=== PATIENT | female | born 1960 | race Caucasian/White ===

== ENCOUNTER → 2017-12-27 | Outpatient (CLI) | payer BC ==
[2017-12-27 12:37] LABS: INR 1.1 (<1.2); Partial Thromboplastin Time 23.7 sec (22.0-30.0); Prothrombin Time 10.6 sec (9.0-12.0)
[2017-12-27 12:43] LABS: HCT 41.9 % (34.0-46.0); HGB 13.8 gm/dL (11.4-16.0); MCH 31.4 pg (25.0-35.0); MCHC 32.9 g/dL (31.0-37.0); MCV 95.4 fL (80.0-100.0); Mean Platelet Volume 7.8; Platelet Count 358 k/uL (150-450); RDW 11.8 % (11.5-15.5); WBC 9.3 k/uL (3.8-10.6)
[2017-12-27 12:47] LABS: ALT 30 U/L (9-52); AST 31 U/L (14-36); Albumin 4.6 g/dL (3.5-5.0); Alkaline Phosphatase 84 U/L (38-126); Anion Gap 16 mmol/L; Blood Urea Nitrogen 14 mg/dL (7-17); Calcium 10.3 mg/dL (8.4-10.2); Carbon Dioxide 26 mmol/L (22-30); Chloride 102 mmol/L (98-107); Glucose 98 mg/dL (74-99); Potassium 4.5 mmol/L (3.5-5.1); Sodium 144 mmol/L (137-145); Total Bilirubin 0.7 mg/dL (0.2-1.3); Total Protein 8.2 g/dL (6.3-8.2)
[2017-12-27 14:28] LABS: Appearance,Urine Clear (Clear); Bilirubin,Urine Negative (Negative); Blood,Urine Negative (Negative); Color,Urine Light Yellow; Glucose,Urine (UA) Negative (Negative); Ketones,Urine Negative (Negative); Leukocyte Esterase,Urine Negative (Negative); Nitrite,Urine Negative (Negative); PH, Urine 6.5 (5.0-8.0); Protein,Urine Trace (Negative); Specific Gravity,Urine 1.004 (1.001-1.035); Urobilinogen,Urine <2.0 mg/dL (<2.0)
== END | disposition home or self-care (01) ==
LOC: LABPAT 11:28
PROVIDERS: ATTEND Orthopaedic Surgery
DX: Z01.812 Encounter for preprocedural laboratory examination (principal)
CPT/HCPCS: 36415; 80053; 81003; 85027; 85610; 85730; 87070

== ENCOUNTER 2018-01-01 09:27 | Inpatient (IN) | payer BC ==
[2017-12-20 10:43] VITALS: BMI 29.2
[~2018-01-01 09:27] MED LIST: ACETAMINOPHEN TAB 500 MG TAB PO ONE; DEXAMETHASONE SOD PHOSPHATE 10 MG/ML 1 ML VIAL IV ONE; MELOXICAM 7.5 MG TAB PO ONE; MIDAZOLAM 2 MG/2 ML VIAL IV PRN; MORPHINE SULFATE 4MG/4ML SYRG IV PRN; ONDANSETRON 4 MG/2 ML VIAL IVP ONE; TRANEXAMIC ACID 1,000 MG in SODIUM CHLORIDE 0.9% 50 ML IVPB ONE
[2018-01-01] MEDS ORDERED: LIDOCAINE 1% 20 ML VIAL (10MG/ML) FOR IV START INTRADERMA ONE (10:00)
[2018-01-01] MEDS: LACTATED RINGERS 1,000 ML IV SCH (10:27)
[2018-01-01] MEDS ORDERED: hydrOXYzine PAMOATE 25 MG CAP PO PRN (11:04)
[2018-01-01] MEDS ORDERED: NALOXONE 0.4 MG/ML 1 ML VIAL IV PRN (11:04)
[2018-01-01] MEDS ORDERED: DIAZEPAM 5 MG TAB PO PRN ×2 (11:04)
[2018-01-01] MEDS ORDERED: ONDANSETRON 4 MG/2 ML VIAL IVP PRN (11:04)
[2018-01-01] MEDS ORDERED: MAGNESIUM HYDROXIDE 2,400 MG/10 ML CUP PO PRN (11:04)
[2018-01-01] MEDS ORDERED: HYDROcodone/APAP 5-325MG 1 EACH TAB PO PRN (11:04)
[2018-01-01] MEDS ORDERED: MORPHINE SULFATE 4MG/4ML SYRG IVP PRN ×3 (11:04)
[2018-01-01] MEDS: ceFAZolin IN SWFI 2 GM/20 ML SYRINGE IVP ONE ×2 (11:41→12:05)
[2018-01-01] MEDS: ROPIVACAINE 246.25 MG, EPINEPHrine 0.5 MG, KETOROLAC 30 MG, cloNIDine HCL/PF 80 MCG, WA... MISCELLANE ONE ×10 (11:42→12:24)
[2018-01-01] MEDS ORDERED: MIDAZOLAM 2 MG/2 ML VIAL ONE (11:49)
[2018-01-01] MEDS ORDERED: PROPOFOL 10 MG/ML 20 ML VIAL IV ONE (11:49)
[2018-01-01] MEDS ORDERED: TRANEXAMIC ACID 1,000 MG/10 ML VIAL ONE (11:49)
[2018-01-01] MEDS ORDERED: LIDOCAINE 1% INJ 10MG/ML (20 ML MDV) ONE (11:49)
[2018-01-01] MEDS ORDERED: fentaNYL (PF) 50 MCG/ML 2 ML AMP ONE (11:49)
[2018-01-01] MEDS ORDERED: SODIUM CHLORIDE 0.9% 100 ML BAG ONE (11:49)
[2018-01-01] MEDS ORDERED: PHENYLEPHRINE-0.9% NACL SYG 1 MG/10 ML SYRINGE ONE (11:49)
[2018-01-01] MEDS ORDERED: CLINDAMYCIN 1,800 MG in SODIUM CHLORIDE 0.9% IRRIGATIO 3,000 ML IRRIGATION ONE (12:25)
[2018-01-01] MEDS ORDERED: LACTATED RINGERS 1,000 ML IV ONE (12:25)
--- NOTE | 2018-01-01 13:17 | P.OP ---
Date of Procedure: 01/01/18 Preoperative Diagnosis: Severe osteoarthritis right hip Postoperative Diagnosis: Severe osteoarthritis right hip Procedure(s) Performed: Right total hip arthroplasty with a direct anterior approach Implants: Paez and nephew Polarstem size 4 standard Paez & Nephew R3, 3 hole acetabular shell, 48 mm Paez & Nephew reflection 6.5 mm cancellus screw, 20 mm 2 Paez [employer] Nephew R3, XLPE 20 acetabular liner Paez & Nephew Oxinium femoral head 32 m, +0 All components were press-fit. The articulation is Oxinium on polyethylene. Anesthesia: spinal Surgeon: Valente Grande Help Desk Assistant #1: Delilah Cronin Estimated Blood Loss (ml): 100 Pathology: other (Femoral head) Condition: stable Disposition: PACU Indications for Procedure: After failure of conservative treatment we discussed the surgical and nonsurgical treatment options at length. Patient wishes to proceed with a total hip arthroplasty with a direct anterior approach. Complications specific to this procedure were discussed at length, including but not limited to infection, leg length discrepancy, dislocation, and nerve injury. Patient is aware of all these complications and informed consent was obtained Operative Findings: The operative findings are consistent with severe osteoarthritis of the right hip Description of Procedure: Patient was seen and evaluated in the preoperative area, consent was reviewed, and the surgical site was marked with a skin marker. Patient was then brought to the operating room and given prophylactic antibiotics intravenously. 1 g of Tranexamic acid was also given. A spinal anesthetic was administered by the anesthesia department. The patient was then placed on the Freeman table with the bony prominences well-padded. The hip area was then prepped and draped in usual sterile fashion. A universal timeout was then performed, which confirmed the patient's name, surgical site, ALLERGIES, and procedure being performed. Next the incision site was located at 1 cm distal and 1 cm lateral to the anterior superior iliac spine. The skin and subcutaneous tissues were sharply incised. Incision was carefully dissected down to the fascia overlying the tensor fascia satnam muscle. This fascia was then incised in line with the incision. Next, using blunt finger dissection, the tensor fascia satnam muscle was dissected off its investing fascia. The muscle was then carefully retracted laterally with a cobra retractor over the lateral neck of the femur. Next, the circumflex vessels were identified and cauterized using the AquaMantis device. The anterior hip capsule was then exposed. The capsule was then opened and an inverted T fashion. Cobra retractors were then placed intracapsularly. The proximal femur was then visualized. The femoral neck was then osteotomized appropriate level above the lesser trochanter. Small amount of traction was placed with the Freeman table. A small wedge of bone was then removed from the remaining femoral head. Next, using a corkscrew femoral head was easily removed from the acetabulum. On gross visual inspection, the femoral head had complete loss of articular cartilage in multiple periarticular osteophytes. Attention was then turned to the acetabulum. the acetabulum was exposed and any remaining labrum was excised. Sequential reaming of the acetabulum was performed using fluoroscopic guidance. When the appropriate size was reached, a trial was then placed. The position and fit of the trial was checked with fluoroscopy. The trial was then removed. Then, using fluoroscopic guidance, the final implant was impacted at 20 of anteversion and 40 of abduction, and fully seated in the acetabulum. 2 screws were then placed in the acetabulum. Again fluoroscopy was used to check position of the screws. Next, the liner was then impacted, with a 20 elevated liner located in the anterior superior quadrant. Component locking was confirmed. Attention was then directed to the femur. With the aid of the Freeman table, the femur was externally rotated to approximately 130, extended, and abducted under the opposite leg. A side hook was then placed under the proximal femur, and the side hook elevator was used to elevate the proximal femur. Retractors were then placed. A capsular release was performed, as well as a release of the conjoined tendon, which afforded excellent visualization of the proximal femur. Next, a box osteotome was used to lateralize the proximal femur. A production hand was then used to locate the femoral canal. Sequential broaching was then performed with appropriate size which afforded excellent fixation in the proximal femur. A trial was then placed with appropriate head and neck, and the hip was gently reduced with the aid of the Freeman table. Fluoroscopy was then used to check position of the components, as well as to ensure equal leg lengths. The hip was then gently dislocated and the trials were then removed. Final implants were then impacted and the hip was again reduced. Final fluoroscopic x-rays confirmed that the components were in anatomic position, as well as equal leg lengths. The hip was also taken through range of motion, and found to be stable. The hip was then copiously irrigated with antibiotic solution with pulsatile lavage. The hip was then irrigated with Irrisept solution. The soft tissues were then injected with a ropivacaine solution, which consisted of 246.25 mg of ropivacaine, 0.5 mg of epinephrine, 30 mg of Toradol, 80 g of clonidine, and 48.45 mL of sterile water, for a total of 100 mL of fluid injected. A second dose of 1 g of Tranexamic acid was also given. the fascia was then closed with 2-0 strata fix suture. The subcutaneous tissue was closed with 3-0 Vicryl. The subcuticular tissue was closed with 3-0 strata fix suture. The skin was then closed with Dermabond glue and a sterile silver dressing. The patient was then transferred to the recovery room in stable condition. The entry level administrative assistant KAREL Alonso was required due to the complexity of surgery, and the need for skilled ophthalmology surgical technician for positioning, draping, exposure, retraction, and closure of the wound.
[2018-01-01 13:47] VITALS: RESP 16
--- NOTE | 2018-01-01 13:59 | XR ---
Limited right hip HISTORY: Status post right hip arthroplasty Single frontal view of the right hip No comparisons Patient is status post right hip arthroplasty. There is anatomic alignment. Lucency present in the so ft tissues compatible with postop state. IMPRESSION: Orthopedic follow-up
--- NOTE | 2018-01-01 14:35 | XR ---
Limited right hip HISTORY: Hip arthroplasty 2 intraoperative C-arm images document the procedure
--- NOTE | 2018-01-01 14:36 | FL ---
Fluoroscopy HISTORY: Hip arthroplasty 33 seconds fluoroscopy time supplied to the referring clinician. 2 intraoperative C-arm images docum ent the procedure. See dictated report from orthopedic surgery.
[2018-01-01] MEDS: HYDROcodone/APAP 5-325MG 1 EACH TAB PO PRN ×2 (17:07→23:31)
[2018-01-01] MEDS: ASPIRIN 325 MG TAB PO SCH (19:56)
[2018-01-01] MEDS: ceFAZolin IN SWFI 2 GM/20 ML SYRINGE IVP SCH (19:56)
[2018-01-01] MEDS ORDERED: SENNOSIDES-DOCUSATE SODIUM 1 EACH TAB PO SCH (21:00)
[2018-01-01] MEDS: SODIUM CHLORIDE 0.9% 1,000 ML IV SCH (23:07)
[2018-01-02] MEDS: ceFAZolin IN SWFI 2 GM/20 ML SYRINGE IVP SCH (04:30)
[2018-01-02] MEDS: SODIUM CHLORIDE 0.9% 1,000 ML IV SCH (04:34)
[2018-01-02] MEDS: ASPIRIN 325 MG TAB PO SCH (07:36)
[2018-01-02] MEDS: HYDROcodone/APAP 5-325MG 1 EACH TAB PO PRN (07:37)
[2018-01-02 07:48] LABS: Basophils % (A) 0 %; Eosinophils # (A) 0.2 k/uL (0-0.7); Eosinophils % (A) 2 %; HCT 30.3 % (34.0-46.0); Lymphocytes # (A) 1.9 k/uL (1.0-4.8); Lymphocytes % (A) 21 %; MCH 32.3 pg (25.0-35.0); MCHC 34.3 g/dL (31.0-37.0); MCV 94.1 fL (80.0-100.0); Mean Platelet Volume 7.5; Monocytes # (A) 0.7 k/uL (0-1.0); Monocytes % (A) 8 %; Neutrophils # (A) 5.8 k/uL (1.3-7.7); Neutrophils % (A) 66 %; Platelet Count 277 k/uL (150-450); RBC 3.23 m/uL (3.80-5.40); RDW 11.5 % (11.5-15.5); WBC 8.8 k/uL (3.8-10.6)
[2018-01-02 07:51] LABS: HGB 10.4 gm/dL (11.4-16.0)
[2018-01-02] MEDS: LACTATED RINGERS 1,000 ML IV SCH (08:32)
[2018-01-02] MEDS ORDERED: MELOXICAM 7.5 MG TAB PO SCH (09:00)
--- NOTE | 2018-01-02 09:17 | P.DS ---
Providers Date of admission: 01/01/18 09:27 Expected date of discharge: 01/02/18 Attending physician: Valente Grande Consults: 01/01/18 11:04 Consult Physician Routine Consulting Provider: Mellisa Daly Consult Reason/Comments: medical management Do you want consulting provider notified?: Yes 01/01/18 16:57 Consult Physician Routine Consulting Provider: Aaron Yepez Consult Reason/Comments: medical management Do you want consulting provider notified?: Yes Primary care physician: Mellisa Daly, NPC - Discharge Diagnosis(es) (1) Primary osteoarthritis of right hip Current Visit: Yes Status: Acute (2) S/P total hip arthroplasty Current Visit: Yes Status: Acute Hospital Course: This is a 57-year-old a female with known history of degenerative arthritis of the right hip. The patient presents for evaluation. After discussion and consideration patient elects to proceed with total hip arthroplasty. The patient is seen preoperatively by Dr. Grande and medically cleared for surgery by their primary care physician. Patient is admitted to [facility] on 01/01/2018 for total hip arthroplasty. The procedures performed without complication or sequelae. The patient is doing well postoperatively. Labs and vital signs are stable on day of discharge. On day of discharge patient's hip incision is healing well. There is minimal erythema. There is no drainage noted at this time. There is minimal soft tissue swelling to the hip and thigh. Patient has full foot and ankle motion without difficulty or pain. Neurovascular status to the right lower extremity is intact. Patient is discharged home in good condition. Please see med rec for accurate list of home medications. Plan - Discharge Summary Discharge Rx Participant: Yes New Discharge Prescriptions: New Aspirin 325 mg PO BID #60 tab HYDROcodone/APAP 5-325MG [[place] 5-325] 1 - 2 tab PO Q4-6H PRN #90 tab PRN Reason: Pain Sennosides [Senokot] 1 tab PO BID #60 tablet No Action Cetirizine HCl [Zyrtec] 10 mg PO DAILY Lisinopril [Zestril] 20 mg PO QAM Atorvastatin [Lipitor] 40 mg PO HS Aspirin [Adult Low Dose Aspirin EC] 81 mg PO DAILY Discharge Medication List Aspirin [Adult Low Dose Aspirin EC] 81 mg PO DAILY 12/20/17 [History] Atorvastatin [Lipitor] 40 mg PO HS 12/20/17 [History] Cetirizine HCl [Zyrtec] 10 mg PO DAILY 12/20/17 [History] Lisinopril [Zestril] 20 mg PO QAM 12/20/17 [History] Aspirin 325 mg PO BID #60 tab 01/02/18 [Rx] HYDROcodone/APAP 5-325MG [[place] 5-325] 1 - 2 tab PO Q4-6H PRN #90 tab 01/02/18 [ Rx] Sennosides [Senokot] 1 tab PO BID #60 tablet 01/02/18 [Rx] Follow up Appointment(s)/Referral(s): Mellisa Daly NPC [Primary Care Provider] - 1 Week Valente Grande DO [Doctor of Osteopathic Medicine] - 2 Weeks Activity/Diet/Wound Care/Special Instructions: Weightbearing as tolerated with walker Leave dressing intact. Dressing may be removed by home care nurse in 10-14 days. May shower with dressing on. Follow-up with [facility] in 2 weeks, please call with any questions or concerns [phone] Discharge Disposition: HOME WITH HOME HEALTH SERVICES
[2018-01-02] MEDS ORDERED: CALCIUM CARBONATE 500 MG CHEWABLE PO PRN (12:10)
--- NOTE | 2018-01-02 15:14 | P.CONS ---
History of Present Illness - Reason for Consult Fever - History of Present Illness 57-year-old female underwent right hip arthroplasty successfully underwent surgery patient is clinically doing well is being discharged today was consulted for mild fever. Patient denied any dysuria patient may have atelectasis I'll obtain a chest x-ray before her discharge patient was counseled about incentive spirometry patient denied any cough runny nose denied any urinary frequency or urgency no other signs or symptoms of infection at this time. Review of Systems REVIEW OF SYSTEMS: CONSTITUTIONAL: No fever, no malaise, no fatigue. HEENT: No recent visual problems or hearing problems. Denied any sore throat. CARDIOVASCULAR: No chest pain, orthopnea, PND, no palpitations, no syncope. PULMONARY: No shortness of breath, no cough, no hemoptysis. GASTROINTESTINAL: No diarrhea, no nausea, no vomiting, no abdominal pain. Normoactive bowel sounds. NEUROLOGICAL: No headaches, no weakness, no numbness. HEMATOLOGICAL: Denies any bleeding or petechiae. GENITOURINARY: Denies any burning micturition, frequency, or urgency. MUSCULOSKELETAL/RHEUMATOLOGICAL: Denies any joint pain, swelling, or any muscle pain. ENDOCRINE: Denies any polyuria or polydipsia. The rest of the 14-point review of systems is negative. Past Medical History Past Medical History: Hyperlipidemia, Hypertension, Osteoarthritis (OA) Additional Past Medical History / Comment(s): states has "cysts on buttocks" currently being treated with antibiotics History of Any Multi-Drug Resistant Organisms: None Reported Past Surgical History: Tonsillectomy, Tubal Ligation Additional Past Surgical History / Comment(s): I&D of right buttock abscess about 3 years ago. Left armpit abscess I&D in 2015. left leg hematoma removed Past Anesthesia/Blood Transfusion Reactions: No Reported Reaction Past Psychological History: No Psychological Hx Reported Smoking Status: Current every day smoker Past Alcohol Use History: Occasional Additional Past Alcohol Use History / Comment(s): 1/2-1ppd from age 15 Past Drug Use History: None Reported - Past Family History Father Family Medical History: AICD/Pacemaker, Cancer, Diabetes Mellitus, Myocardial Infarction ([place]) Additional Family Medical History / Comment(s): Squamous cell skin cancer Daughter(s) Family Medical History: Cancer Additional Family Medical History / Comment(s): skin Medications and Allergies Home Medications Medication Instructions Recorded Confirmed Type Atorvastatin [Lipitor] 40 mg PO HS 12/20/17 01/01/18 History Cetirizine HCl [Zyrtec] 10 mg PO DAILY 12/20/17 01/01/18 History Aspirin 325 mg PO BID #60 tab 01/02/18 Rx HYDROcodone/APAP 5-325MG [Gravity 1 - 2 tab PO Q4-6H PRN #90 tab 01/02/18 Rx 5-325] Lisinopril [Zestril] 20 mg PO QAM #0 01/02/18 01/01/18 Rx Sennosides [Senokot] 1 tab PO BID #60 tablet 01/02/18 Rx Allergies Allergy/AdvReac Type Severity Reaction Status Date / Time Penicillins Allergy Swelling Verified 01/01/18 17:52 Physical Exam Vitals: Vital Signs Temp Pulse Resp BP Pulse Ox 01/02/18 07:00 98.7 F 85 103/63 93 L 01/02/18 01:08 100.5 F H 87 16 102/53 94 L 01/01/18 20:00 98.1 F 86 16 96/51 93 L 01/01/18 16:02 89 16 131/71 98 01/01/18 15:30 80 16 131/64 100 Intake and Output 01/02/18 01/02/18 01/02/18 06:59 14:59 22:59 Intake Total 520 Balance 520 Intake: Intake, IV Titration 520 Amount Sodium Chloride 0.9% 1, 520 000 ml @ 65 mls/hr IV . [id number] [facility] Rx#:[id number] Other: Voiding Method Toilet # Voids 2 PHYSICAL EXAMINATION: GENERAL: The patient is alert and oriented x3, not in any acute distress. Well developed, well nourished. HEENT: Pupils are round and equally reacting to light. EOMI. No scleral icterus. No conjunctival pallor. Normocephalic, atraumatic. No pharyngeal erythema. No thyromegaly. CARDIOVASCULAR: S1 and S2 present. No murmurs, rubs, or gallops. PULMONARY: Chest is clear to auscultation, no wheezing or crackles. ABDOMEN: Soft, nontender, nondistended, normoactive bowel sounds. No palpable organomegaly. MUSCULOSKELETAL: No joint swelling or deformity. EXTREMITIES: No cyanosis, clubbing, or pedal edema. NEUROLOGICAL: Gross neurological examination did not reveal any focal deficits. SKIN: No rashes. Results CBC & Chem 7: 01/02/18 07:22 Labs: Abnormal Lab Results - Last 24 Hours (Table) 01/02/18 Range/Units 07:22 RBC 3.23 L (3.80-5.40) m/uL Hgb 10.4 L D (11.4-16.0) gm/dL Hct 30.3 L (34.0-46.0) % Assessment and Plan Plan: -Low-grade fever: Probably atelectasis we'll obtain a chest x-ray. Patient does not have any other signs or symptoms of infection -Hypertension patient's blood pressure is in low 100 systolic because of which I requested her to hold off on lisinopril until see her primary physician and if her blood pressure goes up at home upon the home measurements in the morning she can resume taking lisinopril. Patient is expected to have low blood pressure in the perioperative period -Right hip arthroplasty sepsis and underwent surgery due to prophylaxis and pain management as per primary service patient can be discharged from medical perspective Discharge medications were reviewed and accommodations as mentioned above.
--- NOTE | 2018-01-02 15:46 | XR ---
EXAMINATION TYPE: XR chest 2V DATE OF EXAM: 01/02/2018 COMPARISON: NONE HISTORY: Fever TECHNIQUE: Frontal and lateral views of the chest are obtained. FINDINGS: There is no focal air space opacity, pleural effusion, or pneumothorax seen. The cardiac silhouette size is within normal limits. Patient is rotated. Arthropathy noted within the shoulders. Increased AP diameter of the chest may be indicative of underlying COPD. There is thoracic spondylosi s. The osseous structures are intact. IMPRESSION: No acute cardiopulmonary process.
[2018-01-02 16:12] VITALS: BP 124/74; PULSE 94; TEMP 99.9
== END 2018-01-02 16:50 | disposition home health service (06) | DRG 470 ==
LOC: 2ORMAIN 09:27 → 3SUR 16:21
PROVIDERS: ADMIT Orthopaedic Surgery; ATTEND Orthopaedic Surgery
PROC: 0SR906A Replacement of Right Hip Joint with Oxidized Zirconium on Polyethylene Synthetic Substitute, Uncemented, Open Approach (ICD-10-PCS; principal; 2018-01-01 11:30)
DX: M16.11 Unilateral primary osteoarthritis, right hip (principal); E78.5 Hyperlipidemia, unspecified; I10 Essential (primary) hypertension; F17.210 Nicotine dependence, cigarettes, uncomplicated; R50.9 Fever, unspecified; Z79.899 Other long term (current) drug therapy; Z79.82 Long term (current) use of aspirin; Z88.0 Allergy status to penicillin; Z82.49 Family history of ischemic heart disease and other diseases of the circulatory system; Z98.51 Tubal ligation status; Z98.890 Other specified postprocedural states; Z86.19 Personal history of other infectious and parasitic diseases
CPT/HCPCS: 71046; 73501; 85025; 86850; 86900; 86901; 88300

== ENCOUNTER 2025-01-28 23:31 | Inpatient (IN) | payer BC, OTHER ==
[2025-01-28] MEDS ORDERED: IPRATROPIUM-ALBUTEROL 3 ML NEB INHALATION STA (23:36)
--- NOTE | 2025-01-28 23:39 | ED ---
SOB HPI - General Stated Complaint: ELMER Time Seen by Provider: 01/28/25 23:34 Source: RN notes reviewed, old records reviewed Mode of arrival: ambulatory Limitations: no limitations - History of Present Illness Initial Comments: This is a 64-year-old female to the ER for evaluation she presents today for evaluation regarding shortness of breath severe shortness of breath unable to catch her breath currently here in the ER with chest pain, no fevers MD Complaint: shortness of breath, cough, chest pain, anxiety -: days(s) Severity: severe Severity scale (1-10): 10 Quality: dull Consistency: constant Improves With: nothing Worsens With: nothing Known History Of: COPD, congestive heart failure Context: recent URI, recent illness Associated Symptoms: denies other symptoms Treatments Prior to Arrival: none - Related Data Home Medications Medication Instructions Recorded Confirmed Atorvastatin [Lipitor] 40 mg PO HS 12/20/17 01/01/18 Cetirizine HCl [Zyrtec] 10 mg PO DAILY 12/20/17 01/01/18 Previous Rx's Medication Instructions Recorded Aspirin 325 mg PO BID #60 tab 01/02/18 HYDROcodone/APAP 5-325MG [[place] 1 - 2 tab PO Q4-6H PRN #90 tab 01/02/18 5-325] Sennosides [Senokot] 1 tab PO BID #60 tablet 01/02/18 lisinopriL [Zestril] 20 mg PO QAM #0 01/02/18 Allergies Allergy/AdvReac Type Severity Reaction Status Date / Time Penicillins Allergy Swelling Verified 01/28/25 23:41 Review of Systems ROS Statement: Those systems with pertinent positive or pertinent negative responses have been documented in the HPI. ROS Other: All systems not noted in ROS Statement are negative. Past Medical History Past Medical History: Hyperlipidemia, Hypertension, Osteoarthritis (OA) Additional Past Medical History / Comment(s): states has "cysts on buttocks" currently being treated with antibiotics History of Any Multi-Drug Resistant Organisms: None Reported Past Surgical History: Tonsillectomy, Tubal Ligation Additional Past Surgical History / Comment(s): I&D of right buttock abscess about 3 years ago. Left armpit abscess I&D in 2015. left leg hematoma removed Past Anesthesia/Blood Transfusion Reactions: No Reported Reaction Past Psychological History: No Psychological Hx Reported Past Alcohol Use History: Occasional Additional Past Alcohol Use History / Comment(s): 1/2-1ppd from age 15 Past Drug Use History: None Reported - Past Family History Father Family Medical History: AICD/Pacemaker, Cancer, Diabetes Mellitus, Myocardial Infarction (HI) Additional Family Medical History / Comment(s): Squamous cell skin cancer Daughter(s) Family Medical History: Cancer Additional Family Medical History / Comment(s): skin General Exam General appearance: alert, in no apparent distress Head exam: Present: atraumatic, normocephalic, normal inspection Eye exam: Present: normal appearance, PERRL, EOMI. Absent: scleral icterus, conjunctival injection, periorbital swelling ENT exam: Present: normal exam, mucous membranes moist Neck exam: Present: normal inspection. Absent: tenderness, meningismus, lymphadenopathy Respiratory exam: Present: normal lung sounds bilaterally. Absent: respiratory distress, wheezes, rales, rhonchi, stridor Cardiovascular Exam: Present: regular rate, normal rhythm, normal heart sounds. Absent: systolic murmur, diastolic murmur, rubs, gallop, clicks GI/Abdominal exam: Present: soft, normal bowel sounds. Absent: distended, tenderness, guarding, rebound, rigid Extremities exam: Present: normal inspection, full ROM, normal capillary refill. Absent: tenderness, pedal edema, joint swelling, calf tenderness Back exam: Present: normal inspection Neurological exam: Present: alert, oriented X3, CN II-XII intact Psychiatric exam: Present: normal affect, normal mood Skin exam: Present: warm, dry, intact, normal color. Absent: rash Course Vital Signs 01/28/25 01/28/25 01/29/25 23:35 23:53 00:04 Temperature 96.4 F L Pulse Rate 104 H Respiratory 20 28 H Rate Blood Pressure 163/106 O2 Sat by Pulse 94 L Oximetry Fraction of 50 Inspired Oxygen (FIO2) 01/29/25 01/29/25 01/29/25 00:05 00:08 00:22 Temperature Pulse Rate 106 H 107 H Respiratory Rate Blood Pressure O2 Sat by Pulse Oximetry Fraction of 40 Inspired Oxygen (FIO2) 01/29/25 00:40 Temperature Pulse Rate 101 H Respiratory 20 Rate Blood Pressure 133/82 O2 Sat by Pulse 100 Oximetry Fraction of Inspired Oxygen (FIO2) - Reevaluation(s) Reevaluation #1: 05/08/25 00:40 Medical records reviewed Reevaluation #2: 01/29/25 01:18 Patient symptoms improving on BiPAP Reevaluation #3: 01/29/25 01:18 Patient informed of results questions answered Reevaluation #4: Was pt. sent in by a medical professional or institution (, [facility], DRUM TENDER, urgent care, hospital, or half-way...) When possible be specific @ -no Did you speak to anyone other than the patient for history (EMS, parent, family, police, friend...)? What history was obtained from this source @ -no Did you review nursing and triage notes (agree or disagree)? Why? @ -agree Are old charts reviewed (outside hosp., previous admission, EMS record, old EKG, old radiological studies, urgent care reports/EKG's, half-way records)? Report findings @ -yes Differential Diagnosis (chest pain, altered mental status, abdominal pain women, abdominal pain men, vaginal bleeding, weakness, fever, dyspnea, syncope, headache, dizziness, GI bleed, back pain, seizure, CVA, palpatations, mental health, musculoskeletal)? @ -prior EKG interpreted by me (3pts min.). @ -yes X-rays interpreted by me (1pt min.). @ -yes negative for acute disease CT interpreted by me (1pt min.). @ -no U/S interpreted by me (1pt. min.). @ -no What testing was considered but not performed or refused? (CT, X-rays, U/S, labs)? Why? @ -none What meds were considered but not given or refused? Why? @ -none Did you discuss the management of the patient with other professionals (professionals i.e. KAREL Villareal, DRUM TENDER, lab, RT, psych nurse, social services assistant, nuclear logging engineer, teacher, staff weapons officer, child welfare caseworker)? Give summary @ -no Was smoking cessation discussed for >3mins.? @ -no Was critical care preformed (if so, how long)? @ -no Were there social determinants of health that impacted care today? How? (Homelessness, low income, unemployed, alcoholism, drug addiction, transportation, low edu. Level, literacy, decrease access to med. care, correction, rehab)? @ -none Was there de-escalation of care discussed even if they declined (Discuss DNR or withdrawal of care, Hospice)? DNR status @ -no What co-morbidities impacted this encounter? (DM, HTN, Smoking, COPD, CAD, Cancer, CVA, ARF, Chemo, Hep., AIDS, mental health diagnosis, sleep apnea, morbid obesity)? @ -none Was patient admitted / discharged? Hospital course, mention meds given and route, prescriptions, significant lab abnormalities, going to OR and other perti nent info. @ - Undiagnosed new problem with uncertain prognosis? @ -no Drug Therapy requiring intensive monitoring for toxicity (Heparin, Nitro, Insulin, Cardizem)? @ -no Were any procedures done? @ -no Diagnosis/symptom? @ - Acute, or Chronic, or Acute on Chronic? @ -Acute Uncomplicated (without systemic symptoms) or Complicated (systemic symptoms)? @ -Complicated Side effects of treatment? @ -no Exacerbation, Progression, or Severe Exacerbation? @ -exacerbation Poses a threat to life or bodily function? How? (Chest pain, [place], HI, pneumonia, PE, COPD, DKA, ARF, appy, cholecystitis, CVA, Diverticulitis, Homicidal, Suicidal, threat to staff... and all critical care pts) @ -yes Reevaluation #5: Differential Dyspnea: Coronary syndrome, arrhythmia, tamponade, asthma, COPD, pulmonary embolism, pneumonia, pneumothorax, pulmonary effusion, anaphylaxis, diabetic ketoacidosis, flailed chest, pulmonary contusion, diaphragmatic rupture, anemia, neuromuscular, this is not meant to be an all-inclusive list. - Consultations Consultation #1: Spoke with konrad who agrees to admit this patient Medical Decision Making - Medical Decision Making 64 female with acute respiratory failure COPD with respiratory failure but hypoxic on BiPAP - Lab Data Result diagrams: 01/28/25 23:54 01/28/25 23:54 Lab Results 01/28/25 01/28/25 01/28/25 Range/Units 23:54 23:54 23:54 WBC 15.08 H (4.50-10.00) 10*3/uL RBC 4.72 (4.10-5.20) 10*6/uL Hgb 15.7 H (12.0-15.0) g/dL Hct 46.4 H (37.2-46.3) % MCV 98.3 H (80.0-97.0) fL MCH 33.3 H (27.0-32.0) pg MCHC 33.8 (32.0-37.0) g/dL Plt Count 420 (140-440) 10*3/uL MPV 9.9 (9.5-12.2) fL Immature Gran % (Auto) 0.3 % Neutrophils % 49.1 % Lymphocytes % 36.7 % Monocytes % 9.5 % Eosinophils % 3.7 % Basophils % 0.7 % Immature Gran # 0.05 H (0.00-0.04) 10*3/uL Neutrophils # 7.39 (1.80-7.70) 10*3/uL Lymphocytes # 5.54 H (0.90-5.00) 10*3/uL Monocytes # 1.44 H (0.20-1.00) 10*3/uL Eosinophils # 0.56 H (0.04-0.35) 10*3/uL Basophils # 0.10 (0.00-0.10) 10*3/uL Manual Slide Review Performed PT 10.9 (10.0-12.5) sec INR 1.0 (<1.2) APTT 22.9 (22.0-30.0) sec D-Dimer 0.34 (<0.60) mg/L FEU Sodium 139 (137-145) mmol/L Potassium 4.5 (3.5-5.1) mmol/L Chloride 99 (98-107) mmol/L Carbon Dioxide 28 (22-30) mmol/L Anion Gap 12 mmol/L BUN 25 H (7-17) mg/dL Creatinine 0.62 (0.52-1.04) mg/dL Est GFR (CKD-EPI)AfAm >90 (>60 ml/min/1.73 sqM) Est GFR (CKD-EPI)NonAf >90 (>60 ml/min/1.73 sqM) Glucose 214 H (74-99) mg/dL Plasma Lactic Acid Evans (0.7-2.0) mmol/L Calcium 9.5 (8.4-10.2) mg/dL Magnesium 2.0 (1.6-2.3) mg/dL Total Bilirubin 0.5 (0.2-1.3) mg/dL AST 30 (14-36) U/L ALT 26 (4-34) U/L Alkaline Phosphatase 96 (38-126) U/L Troponin I (0.000-0.034) ng/mL NT-Pro-B Natriuret Pep 118 pg/mL Total Protein 8.5 H (6.3-8.2) g/dL Albumin 4.6 (3.5-5.0) g/dL 01/28/25 01/28/25 Range/Units 23:54 23:54 WBC (4.50-10.00) 10*3/uL RBC (4.10-5.20) 10*6/uL Hgb (12.0-15.0) g/dL Hct (37.2-46.3) % MCV (80.0-97.0) fL MCH (27.0-32.0) pg MCHC (32.0-37.0) g/dL Plt Count (140-440) 10*3/uL MPV (9.5-12.2) fL Immature Gran % (Auto) % Neutrophils % % Lymphocytes % % Monocytes % % Eosinophils % % Basophils % % Immature Gran # (0.00-0.04) 10*3/uL Neutrophils # (1.80-7.70) 10*3/uL Lymphocytes # (0.90-5.00) 10*3/uL Monocytes # (0.20-1.00) 10*3/uL Eosinophils # (0.04-0.35) 10*3/uL Basophils # (0.00-0.10) 10*3/uL Manual Slide Review PT (10.0-12.5) sec INR (<1.2) APTT (22.0-30.0) sec D-Dimer (<0.60) mg/L FEU Sodium (137-145) mmol/L Potassium (3.5-5.1) mmol/L Chloride (98-107) mmol/L Carbon Dioxide (22-30) mmol/L Anion Gap mmol/L BUN (7-17) mg/dL Creatinine (0.52-1.04) mg/dL Est GFR (CKD-EPI)AfAm (>60 ml/min/1.73 sqM) Est GFR (CKD-EPI)NonAf (>60 ml/min/1.73 sqM) Glucose (74-99) mg/dL Plasma Lactic Acid Evans 0.9 (0.7-2.0) mmol/L Calcium (8.4-10.2) mg/dL Magnesium (1.6-2.3) mg/dL Total Bilirubin (0.2-1.3) mg/dL AST (14-36) U/L ALT (4-34) U/L Alkaline Phosphatase (38-126) U/L Troponin I <0.012 (0.000-0.034) ng/mL NT-Pro-B Natriuret Pep pg/mL Total Protein (6.3-8.2) g/dL Albumin (3.5-5.0) g/dL - EKG Data -: EKG Interpreted by Me (EKG is sinus tachycardia 112 LA 172 QRS 95 QTc 390) - Radiology Data Radiology results: report reviewed (Chest x-ray is negative for acute disease), image reviewed Critical Care Time Critical Care Time: Yes Total Critical Care Time: 31 Disposition Clinical Impression: Acute exacerbation of chronic obstructive pulmonary disease, Acute respiratory failure Disposition: ADMITTED IP TO THIS HOSP Condition: Serious Is patient prescribed a controlled substance at d/c from ED?: No Referrals: None,Stated [REFERRING] - 1-2 days Time of Disposition: 01:00
[2025-01-28] MEDS: SODIUM CHLORIDE 0.9% 1,000 ML IV ONE (23:47)
[2025-01-28] MEDS: DEXAMETHASONE SOD PHOSPHATE 10 MG/ML 1 ML VIAL IVP STA (23:47)
[2025-01-28] MEDS: MORPHINE SULFATE 2 MG/ML SYRINGE IVP STA (23:47)
[2025-01-29] LABS: Basophils % (A) 0.7 %; Eosinophils # (A) 0.56 10*3/uL (0.04-0.35); Eosinophils % (A) 3.7 %; HCT 46.4 % (37.2-46.3); HGB 15.7 g/dL (12.0-15.0); Lymphocytes # (A) 5.54 10*3/uL (0.90-5.00); Lymphocytes % (A) 36.7 %; MCH 33.3 pg (27.0-32.0); MCHC 33.8 g/dL (32.0-37.0); MCV 98.3 fL (80.0-97.0); Mean Platelet Volume 9.9 fL (9.5-12.2); Monocytes # (A) 1.44 10*3/uL (0.20-1.00); Monocytes % (A) 9.5 %; Neutrophils # (A) 7.39 10*3/uL (1.80-7.70); Neutrophils % (A) 49.1 %; Platelet Count 420 10*3/uL (140-440); RBC 4.72 10*6/uL (4.10-5.20); RDW 13.2 % (11.5-14.5); WBC 15.08 10*3/uL (4.50-10.00)
[2025-01-29] MEDS: ALBUTEROL NEBULIZED 2.5 MG/3 ML INHALATION STA (00:03)
[2025-01-29] MEDS: IPRATROPIUM 0.5 MG/2.5 ML NEBU INHALATION STA (00:03)
[2025-01-29 00:18] LABS: ALT 26 U/L (4-34); AST 30 U/L (14-36); African American GFR (CKD) >90 (>60 ml/min/1.73 sqM); Albumin 4.6 g/dL (3.5-5.0); Alkaline Phosphatase 96 U/L (38-126); Anion Gap 12 mmol/L; Blood Urea Nitrogen 25 mg/dL (7-17); Calcium 9.5 mg/dL (8.4-10.2); Carbon Dioxide 28 mmol/L (22-30); Chloride 99 mmol/L (98-107); Glucose 214 mg/dL (74-99); Non-African American GFR(CKD) >90 (>60 ml/min/1.73 sqM); Potassium 4.5 mmol/L (3.5-5.1); Sodium 139 mmol/L (137-145); Total Bilirubin 0.5 mg/dL (0.2-1.3); Total Protein 8.5 g/dL (6.3-8.2)
[2025-01-29 00:26] LABS: NT-Pro-B-Type Natriuretic Pept 118 pg/mL
[2025-01-29 00:31] LABS: Partial Thromboplastin Time 22.9 sec (22.0-30.0); Prothrombin Time 10.9 sec (10.0-12.5)
[2025-01-29] MEDS ORDERED: NALOXONE 0.4 MG/ML 1 ML VIAL IV PRN (01:15)
[2025-01-29] MEDS ORDERED: MORPHINE SULFATE 4 MG/ML SYRINGE IV PRN (01:15)
[2025-01-29] MEDS ORDERED: ONDANSETRON 4 MG/2 ML VIAL IVP PRN (01:15)
--- NOTE | 2025-01-29 01:21 | XR ---
EXAM: XR Chest, 1 View CLINICAL HISTORY: XR Reason: difficulty breathing TECHNIQUE: Frontal view of the chest. COMPARISON: January 02, 2018 FINDINGS: Lungs: Vascular congestion is present. Mild edema cannot be excluded. No focal consolidation is seen. Pleural space: Unremarkable. No pneumothorax. Heart: The cardiac silhouette is mildly enlarged. Mediastinum: Unremarkable. Normal mediastinal contour. Bones/joints: Mild osteophytosis throughout the thoracic spine, unchanged. No acute fracture. Upper abdomen: Unremarkable as visualized. No pneumoperitoneum under the diaphragm. IMPRESSION: 1. Vascular congestion is present. Mild edema cannot be excluded. No focal consolidation is seen. 2. The cardiac silhouette is mildly enlarged.
[2025-01-29] MEDS: methylPREDNISolone SOD SUCCI 125 MG/2 ML VIAL IV STA (01:27)
[2025-01-29] MEDS: SODIUM CHLORIDE 0.9% 1,000 ML IV SCH (01:27)
[2025-01-29] MEDS ORDERED: IPRATROPIUM-ALBUTEROL 3 ML NEB INHALATION PRN (02:31)
[2025-01-29] MEDS: IPRATROPIUM-ALBUTEROL 3 ML NEB INHALATION STA (03:03)
[2025-01-29] MEDS: IPRATROPIUM-ALBUTEROL 3 ML NEB INHALATION SCH (03:04)
[2025-01-29] MEDS ORDERED: ALBUTEROL NEBULIZED 2.5 MG/3 ML INHALATION SCH (04:00)
--- NOTE | 2025-01-29 04:13 | P.HPIM ---
History of Present Illness H&P Date: 01/29/25 History of present illness; Patient is a 64-year-old female with a history of hyperlipidemia, hypertension, COPD who presents for severe shortness of breath. Patient states for the last week she has had increased shortness of breath which she believes is from increased allergies. During this time she has increased cough with sputum production she attest to having a 50-year pack history and takes inhalers at home as needed. She does not wear oxygen at home at baseline. She denies fever, chills, chest pain, abdominal pain, nausea, vomiting, dysuria. Spoke with the ER physician, patient admission was accepted by internal medicine service for treatment. REVIEW OF SYSTEMS: Pertinent positives and negatives noted in HPI. PHYSICAL EXAMINATION: Vitals reviewed GENERAL: Resting comfortably in bed. EYES: PERRL, no scleral injection or icterus. No vision loss HENT: Normocephalic, atraumatic, hearing grossly intact, moist mucous membranes NECK: No tracheal deviation, full range of motion. CARDIOVASCULAR: S1 and S2 present. No murmurs, rubs, or gallops. PULMONARY: Significant wheezing bilaterally, bronchospastic ABDOMEN: Soft, nontender, nondistended. No palpable organomegaly. MUSCULOSKELETAL: No apparent joint swelling and deformities. EXTREMITIES: No apparent cyanosis, clubbing. No pedal edema. NEUROLOGICAL: Alert and oriented. Gross neurological examination with no appar ent focal deficits. SKIN: No apparent rashes. ER FINDINGS: Labs significant for WBC 15, hemoglobin 15.7, BUN 25, glucose 214, troponin<0.012 => 0.133, proBNP 118 EKG independently interpreted showed sinus tachycardia heart rate of 110, QTc 390, no ST segment elevation or depression seen, no T-wave inversions seen. Chest x-ray done independently interpreted showed vascular congestion without focal consolidations, mildly enlarged cardiac silhouette. Assessment and Plan: In summary, patient is a 64-year-old female with a history of hyperlipidemia, hypertension who presents for severe shortness of breath. #Acute hypoxic respiratory failure with secondary to COPD exacerbation #Allergic rhinitis #Acute COPD exacerbation #Leukocytosis, reactive #Elevated troponin Type II GA, likely 2/2 to above -Chest x-ray findings of vascular congestion without focal consolidations -Initial WBC 15 Monitor CBC -Begin bronchodilators DuoNeb 0.5-3mg 3ml Q4h, Symbicort 160-4.5 Mcg inhalation 2 Puff BID -Begin Solu-medrol 60 mg IV every 6 hours -Begin azithromycin 500mg daily -Viral resp panel, procal ordered -Continue nasal cannula, ween if appropriate when saturating O2 greater than 92% -Pulmonology consulted - fluticasone intranasal 1-2 sprays daily PRN #Hyperglycemia Monitor CMP HbA1c ordered - Consider low dose sliding scale if elevated Chronic Medical Conditions #Hyperlipidemia #Hypertension Resume home meds DVT ppx: Subq Lovenox 40 meq daily Code status: Full code F: P.o. E: Replete as needed N: Regular diet A: Ambulatory Anticipated discharge place: Pending clinical course Anticipated discharge time: Pending clinical course Dictation was produced using [employer] dictation software. Please excuse any grammatical, word or spelling errors. I saw and evaluated the patient during the griffith and critical portions of this encounter, and discussed the case in detail with the resident author of this note, I agree with the Assessment and Plan, and my changes, if any, are highlighted in blue. Past Medical History Past Medical History: Hyperlipidemia, Hypertension, Osteoarthritis (OA) Additional Past Medical History / Comment(s): states has "cysts on buttocks" currently being treated with antibiotics History of Any Multi-Drug Resistant Organisms: None Reported Past Surgical History: Tonsillectomy, Tubal Ligation Additional Past Surgical History / Comment(s): I&D of right buttock abscess about 3 years ago. Left armpit abscess I&D in 2015. left leg hematoma removed Past Anesthesia/Blood Transfusion Reactions: No Reported Reaction Past Psychological History: No Psychological Hx Reported Past Alcohol Use History: Occasional Additional Past Alcohol Use History / Comment(s): 1/2-1ppd from age 15 Past Drug Use History: None Reported - Past Family History Father Family Medical History: AICD/Pacemaker, Cancer, Diabetes Mellitus, Myocardial Infarction (GA) Additional Family Medical History / Comment(s): Squamous cell skin cancer Daughter(s) Family Medical History: Cancer Additional Family Medical History / Comment(s): skin Medications and Allergies Home Medications Medication Instructions Recorded Confirmed Type Atorvastatin [Lipitor] 40 mg PO HS 12/20/17 01/01/18 History Cetirizine HCl [Zyrtec] 10 mg PO DAILY 12/20/17 01/01/18 History Aspirin 325 mg PO BID #60 tab 01/02/18 Rx HYDROcodone/APAP 5-325MG [[place] 1 - 2 tab PO Q4-6H PRN #90 tab 01/02/18 Rx 5-325] Sennosides [Senokot] 1 tab PO BID #60 tablet 01/02/18 Rx lisinopriL [Zestril] 20 mg PO QAM #0 01/02/18 01/01/18 Rx Allergies Allergy/AdvReac Type Severity Reaction Status Date / Time Penicillins Allergy Swelling Verified 01/28/25 23:41 Physical Exam Osteopathic Statement: *. No significant issues noted on an osteopathic structural exam other than those noted in the History and Physical/Consult. Vitals: Vital Signs Temp Pulse Resp BP Pulse Ox FiO2 01/29/25 00:40 101 H 20 133/82 100 01/29/25 00:22 107 H 01/29/25 00:08 40 01/29/25 00:05 106 H 01/29/25 00:04 28 H 01/28/25 23:53 50 01/28/25 23:35 96.4 F L 104 H 20 163/106 94 L Intake and Output 01/28/25 01/28/25 01/29/25 14:59 22:59 06:59 Other: Weight 68.039 kg Results CBC & Chem 7: 01/28/25 23:54 01/28/25 23:54 Labs: Abnormal Lab Results - Last 24 Hours (Table) 01/28/25 01/28/25 Range/Units 23:54 23:54 WBC 15.08 H (4.50-10.00) 10*3/uL Hgb 15.7 H (12.0-15.0) g/dL Hct 46.4 H (37.2-46.3) % MCV 98.3 H (80.0-97.0) fL MCH 33.3 H (27.0-32.0) pg Immature Gran # 0.05 H (0.00-0.04) 10*3/uL Lymphocytes # 5.54 H (0.90-5.00) 10*3/uL Monocytes # 1.44 H (0.20-1.00) 10*3/uL Eosinophils # 0.56 H (0.04-0.35) 10*3/uL BUN 25 H (7-17) mg/dL Glucose 214 H (74-99) mg/dL Total Protein 8.5 H (6.3-8.2) g/dL
--- NOTE | 2025-01-29 04:48 | P.CNPUL ---
History of Present Illness Consult date: 01/29/25 Requesting physician: Jose Toledo Reason for consult: dyspnea Chief complaint: Difficulty in breathing History of present illness: Patient is a 64-year-old female with past medical history significant for hypertension, hyperlipidemia, chronic obstructive pulmonary disease, and heavy tobacco use. Her primary care provider is Dr. aN Agrawal out of [place], [place]. She manages the patient's COPD with a combination of Wixela maintenance inhaler as well as as needed albuterol nebs/inhaler. Patient has a heavy tobacco smoking history of approximately 50 pack years. Recently, cut back to 3 cigarettes/day. Approximately 1 week ago started to have increased work of breathing, increased cough with white phlegm, and chest tightness. She originally thought it was her seasonal allergies. Last night went to the kitchen to use her albuterol nebulizer, was in some respiratory distress, and had her called 911. On arrival, she was placed on BiPAP with settings 10/5 and FiO2 40%. Workup in the ED including a chest x-ray showing marked hyperinflation consistent with COPD. Borderline enlarged cardiac silhouette with possible mild pulmonary vascular congestion. NT proBNP was low at 118. D-dimer also low at 0.34. CBC remarkable for leukocytosis with WBC count of 15, hem oglobin 15.7, platelets 420. CMP: Sodium 139, K4.5, chloride 99, serum bicarb 28, BUN 25, creatinine 0.62, glucose 214. Lactic 0.9. LFTs not elevated. Troponin less than 0.012. EKG done on admission: Sinus tachycardia, rate 110 bpm, no acute ST segment elevations. Patient currently being evaluated in the emergency department room 20. She is off BiPAP which is on standby. With above-mentioned settings. She is on 3 L/min nasal cannula. Not oxygen dependent at baseline. Her COPD continues to be active, she is wheezing. Denies any purulent sputum, hemoptysis, chest pain. Denies any fevers or chills. Denies any nausea, vomiting, diarrhea. Denies any recent travel or sick contacts. She does plan to go to [place] tomorrow. This might have to be postponed. Review of Systems Constitutional: Denies chills, Denies fatigue, Denies fever, Denies poor appetite, Denies weight gain, Denies weight loss Ears, nose, mouth and throat: Denies headache, Denies nasal congestion, Denies nasal discharge, Denies post-nasal drip, Denies sinus pain, Denies sinus pressure, Denies sore throat Cardiovascular: Reports dyspnea on exertion, Reports shortness of breath, Denies chest pain, Denies leg edema, Denies lightheadedness, Denies orthopnea, Denies palpitations, Denies paroxysmal nocturnal dyspnea, Denies syncope Respiratory: Reports as per HPI Gastrointestinal: Denies abdominal pain, Denies change in bowel habits, Denies constipation, Denies diarrhea, Denies hematemesis, Denies melena, Denies nausea, Denies vomiting Genitourinary: Denies dysuria, Denies flank pain, Denies hematuria, Denies urinary frequency Musculoskeletal: Denies limitation of motion Integumentary: Denies rash Neurological: Denies seizures, Denies syncope Psychiatric: Denies anxiety, Denies depression Past Medical History Past Medical History: Hyperlipidemia, Hypertension, Osteoarthritis (OA) Additional Past Medical History / Comment(s): states has "cysts on buttocks" currently being treated with antibiotics History of Any Multi-Drug Resistant Organisms: None Reported Past Surgical History: Tonsillectomy, Tubal Ligation Additional Past Surgical History / Comment(s): I&D of right buttock abscess about 3 years ago. Left armpit abscess I&D in 2015. left leg hematoma removed Past Anesthesia/Blood Transfusion Reactions: No Reported Reaction Past Psychological History: No Psychological Hx Reported Past Alcohol Use History: Occasional Additional Past Alcohol Use History / Comment(s): 1/2-1ppd from age 15 Past Drug Use History: None Reported - Past Family History Father Family Medical History: AICD/Pacemaker, Cancer, Diabetes Mellitus, Myocardial Infarction (ID) Additional Family Medical History / Comment(s): Squamous cell skin cancer Daughter(s) Family Medical History: Cancer Additional Family Medical History / Comment(s): skin Medications and Allergies Home Medications Medication Instructions Recorded Confirmed Type Atorvastatin [Lipitor] 40 mg PO HS 12/20/17 01/01/18 History Cetirizine HCl [Zyrtec] 10 mg PO DAILY 12/20/17 01/01/18 History Aspirin 325 mg PO BID #60 tab 01/02/18 Rx HYDROcodone/APAP 5-325MG [[place] 1 - 2 tab PO Q4-6H PRN #90 tab 01/02/18 Rx 5-325] Sennosides [Senokot] 1 tab PO BID #60 tablet 01/02/18 Rx lisinopriL [Zestril] 20 mg PO QAM #0 01/02/18 01/01/18 Rx Allergies Allergy/AdvReac Type Severity Reaction Status Date / Time Penicillins Allergy Swelling Verified 01/28/25 23:41 Physical Exam Vitals: Vital Signs Temp Pulse Pulse Resp BP BP Pulse Ox 01/29/25 04:00 98.2 F 96 18 116/70 97 01/29/25 03:23 100 01/29/25 03:16 88 01/29/25 03:06 87 01/29/25 03:00 98 20 98 01/29/25 00:40 101 H 20 133/82 100 01/29/25 00:22 107 H 01/29/25 00:08 01/29/25 00:05 106 H 01/29/25 00:04 28 H 01/28/25 23:53 01/28/25 23:35 96.4 F L 104 H 20 163/106 94 L FiO2 01/29/25 04:00 01/29/25 03:23 01/29/25 03:16 01/29/25 03:06 40 01/29/25 03:00 01/29/25 00:40 01/29/25 00:22 01/29/25 00:08 40 01/29/25 00:05 01/29/25 00:04 01/28/25 23:53 50 01/28/25 23:35 Intake and Output 01/28/25 01/28/25 01/29/25 14:59 22:59 06:59 Other: Weight 68.039 kg GENERAL EXAM: Alert, 64-year-old female, in no apparent distress. No signs of CO2 narcosis. BiPAP is on standby. Currently on 3 L/min nasal cannula. HEAD: Normocephalic and atraumatic EYES: Normal reaction of pupils, equal size. NOSE: Clear with pink turbinates. THROAT: No erythema or exudates. NECK: No masses, no JVD. CHEST: Barrel chest LUNGS: Equal air entry with expiratory wheezes heard bilaterally throughout. No conversational dyspnea or accessory muscle use. CVS: S1 and S2 normal with no audible murmur, regular rhythm. No extra heart sounds ABDOMEN: No hepatosplenomegaly, active bowel sounds, no guarding or rigidity. SPINE: No scoliosis or deformity SKIN: No rashes CENTRAL NERVOUS SYSTEM: No focal deficits, tone is normal in all 4 extremities. EXTREMITIES: There is no peripheral edema, clubbing, or cyanosis. Peripheral pulses are intact. Results - Laboratory Findings CBC and BMP: 01/28/25 23:54 01/28/25 23:54 PT/INR, D-dimer PT 10.9 sec (10.0-12.5) 01/28/25 23:54 INR 1.0 (<1.2) 01/28/25 23:54 D-Dimer 0.34 mg/L FEU (<0.60) 01/28/25 23:54 Abnormal lab findings: Abnormal Labs 01/28/25 01/28/25 23:54 23:54 WBC 15.08 H Hgb 15.7 H Hct 46.4 H MCV 98.3 H MCH 33.3 H Immature Gran # 0.05 H Lymphocytes # 5.54 H Monocytes # 1.44 H Eosinophils # 0.56 H BUN 25 H Glucose 214 H Total Protein 8.5 H - Diagnostic Findings Chest x-ray: image reviewed Assessment and Plan Assessment: Acute COPD exacerbation Acute hypoxemic respiratory failure, secondary to above, currently on 3 L/min nasal cannula; chest x-ray showing marked hyperinflation consistent with COPD. Borderline enlarged cardiac silhouette with possible mild pulmonary vascular congestion. NT proBNP low at 118. Acute leukocytosis Hypertension History of hyperlipidemia History of seasonal allergies Current ongoing tobacco smoker, with history of heavy tobacco use over 50 pack years. Plan: Patient's medications, labs, chest x-ray reviewed BiPAP currently off and on standby. Continue supplemental oxygen maintain oxygen saturation of 92% or greater Continue combination of DuoNebs [id number], Symbicort inhaler, and IV Solu-Medrol Cover empirically on azithromycin Smoking cessation counseling performed greater than 10 minutes Nicotine patch offered Recommended annual low-dose chest CT for lung cancer screening on outpatient basis We will continue to follow patient while inpatient, and further recommendations to follow. I have personally seen and examined the patient, performed the documentation and the assessment and plan as written. Number of minutes spent on the visit:20 This dictation was produced using [employer] software please excuse grammatical errors Time with Patient: Greater than 30
[2025-01-29] MEDS: methylPREDNISolone SOD SUCCI 125 MG/2 ML VIAL IV SCH (05:32)
[2025-01-29] MEDS: AZITHROMYCIN 500 MG TAB PO SCH (05:32)
[2025-01-29 06:21] LABS: Influenza A Not Detected (Not Detectd); Influenza B Not Detected (Not Detectd); RSV Not Detected (Not Detectd)
[2025-01-29] MEDS ORDERED: FLUTICASONE NASAL 50MCG/SPRAY 16GM BTL EA NOSTRIL PRN (07:00)
[2025-01-29] MEDS: SYMBICORT 160-4.5 MCG INHALER INHALATION SCH (08:18)
[2025-01-29] MEDS: lisinopriL 20 MG TAB PO SCH ×2 (09:49→12:22)
[2025-01-29] MEDS: LORATADINE 10 MG TAB PO SCH (09:49)
[2025-01-29] MEDS: ENOXAPARIN 40 MG/0.4 ML SYRINGE SQ SCH (09:49)
[2025-01-29] MEDS: NICOTINE 21MG/24HR PATCH TRANSDERM SCH (09:49)
[2025-01-29 09:50] LABS: Basophils # (A) 0.02 10*3/uL (0.00-0.10); Basophils % (A) 0.2 %; HCT 42.8 % (37.2-46.3); HGB 14.2 g/dL (12.0-15.0); Lymphocytes % (A) 3.5 %; MCH 32.9 pg (27.0-32.0); MCHC 33.2 g/dL (32.0-37.0); MCV 99.1 fL (80.0-97.0); Mean Platelet Volume 10.3 fL (9.5-12.2); Monocytes # (A) 0.08 10*3/uL (0.20-1.00); Monocytes % (A) 0.7 %; Neutrophils # (A) 10.87 10*3/uL (1.80-7.70); Neutrophils % (A) 95.1 %; Platelet Count 369 10*3/uL (140-440); RBC 4.32 10*6/uL (4.10-5.20); RDW 13.2 % (11.5-14.5); WBC 11.43 10*3/uL (4.50-10.00)
[2025-01-29 09:52] LABS: African American GFR (CKD) >90 (>60 ml/min/1.73 sqM); Anion Gap 7 mmol/L; Blood Urea Nitrogen 20 mg/dL (7-17); Calcium 9.1 mg/dL (8.4-10.2); Carbon Dioxide 29 mmol/L (22-30); Chloride 103 mmol/L (98-107); Glucose 147 mg/dL (74-99); Magnesium 1.9 mg/dL (1.6-2.3); Non-African American GFR(CKD) >90 (>60 ml/min/1.73 sqM); Potassium 4.9 mmol/L (3.5-5.1); Sodium 139 mmol/L (137-145)
[2025-01-29] MEDS: amLODIPine 5 MG TAB PO SCH (13:37)
[2025-01-29] MEDS: ASPIRIN 81 MG PO SCH (13:37)
--- NOTE | 2025-01-29 16:44 | CA ---
Transthoracic Echo Report Name: Azalea Mills Age: 64 Gender: F : 1960 Exam Date: 01/29/2025 13:42 Exam Location: [facility] Ht (in): 62 Wt (lb): 150 Ordering Physician: Esperanza Frye MD Attending/Referring Phys: [employer] Netta Ramirez RDCS Procedure CPT: Indications: sob Cardiac Hx: COPD Technical Quality: Fair Contrast 1: Total Dose (mL): Contrast 2: Total Dose (mL): MEASUREMENTS (Male / Female) Normal Values 2D ECHO LV Diastolic Diameter PLAX 4.3 cm 4.2 - 5.9 / 3.9 - 5.3 cm LV Systolic Diameter PLAX 2.2 cm IVS Diastolic Thickness 1.1 cm 0.6 - 1.0 / 0.6 - 0.9 cm LVPW Diastolic Thickness 1.2 cm 0.6 - 1.0 / 0.6 - 0.9 cm LV Relative Wall Thickness 0.5 RV Internal Dim ED PLAX 1.7 cm LA Systolic Diameter LX 3.6 cm 3.0 - 4.0 / 2.7 - 3.8 cm LV Diastolic Volume MOD BP 45.0 cm??? 67 - 155 / 56 - 104 cm??? LV Systolic Volume MOD BP 18.9 cm??? 22 - 58 / 19 - 49 cm??? LV Ejection Fraction MOD BP 58.0 % >= 55 % LV Cardiac Index MOD BP 1392.9 cm???/min???m??? LV Diastolic Volume MOD 4C 46.9 cm??? LV Systolic Volume MOD 4C 23.3 cm??? LV Ejection Fraction MOD 4C 50.3 % LV Cardiac Index MOD 4C 1257.6 cm???/min???m??? LV Diastolic Length 4C 7.2 cm LV Systolic Length 4C 5.9 cm LV Diastolic Volume MOD 2C 42.6 cm??? LV Systolic Volume MOD 2C 15.2 cm??? LV Ejection Fraction MOD 2C 64.2 % LV Cardiac Index MOD 2C 1459.3 cm???/min???m??? LV Diastolic Length 2C 7.0 cm LV Systolic Length 2C 5.9 cm LA Volume 62.0 cm??? 18 - 58 / 22 - 52 cm??? LA Volume Index 35.6 cm???/m??? 16 - 28 cm???/m??? M-MODE Aortic Root Diameter MM 3.0 cm LA Systolic Diameter MM 2.7 cm LA Ao Ratio MM 0.9 AV Cusp Separation MM 1.7 cm DOPPLER MV Peak Velocity 155.5 cm/s MV Peak Gradient 9.7 mmHg MV Mean Velocity 90.1 cm/s MV Mean Gradient 3.9 mmHg MV Velocity Time Integral 28.1 cm MV Area PHT 3.3 cm??? Mitral E Point Velocity 83.1 cm/s Mitral A Point Velocity 132.0 cm/s Mitral E to A Ratio 0.6 MV Deceleration Time 229.3 ms TR Peak Velocity 269.0 cm/s TR Peak Gradient 28.9 mmHg FINDINGS Left Ventricle Left ventricular ejection fraction is estimated at 55-60 %. Mildly increased septal wall thickness. Mildly increased posterior wall thickness. Left ventricular cavity size normal. Normal left ventricular systolic function with no obvious regional wall motion abnormalities. Right Ventricle Normal right ventricular size and function. Right ventricular systolic pressure within normal limits. Right Atrium Mild right atrial dilatation. Left Atrium Mildly increased left atrial volume. Mitral Valve Structurally normal mitral valve. Trace mitral regurgitation. No mitral stenosis. Mitral annular calcification. Aortic Valve Trileaflet aortic valve. No aortic valve stenosis or regurgitation. Tricuspid Valve Structurally normal tricuspid valve. Trace to mild tricuspid regurgitation. No tricuspid stenosis. Pulmonic Valve Structurally normal pulmonic valve. No pulmonic stenosis. Trace pulmonic regurgitation. Pericardium No pericardial or pleural effusion. Aorta Normal size aortic root and proximal ascending aorta. CONCLUSIONS Left ventricular size and systolic function is normal. There is mild concentric LVH. Mild biatrial enlargement. Mild mitral and tricuspid regurgitation. No pulmonary hypertension. No pericardial effusion Previewed by: Dr. Earl Daniel MD (Electronically Signed) Final Date: 29 Jan 2025 16:43
[2025-01-29] MEDS: ATORVASTATIN 80 MG TAB PO SCH (19:45)
[2025-01-29] MEDS ORDERED: SYMBICORT 160-4.5 MCG INHALER INHALATION SCH (20:00)
[2025-01-29] MEDS ORDERED: ATORVASTATIN 40 MG TAB PO SCH (21:00)
[2025-01-30] MEDS ORDERED: ACETAMINOPHEN TAB 325 MG TAB PO PRN (07:14)
[2025-01-30 08:02] LABS: Basophils # (A) 0.03 10*3/uL (0.00-0.10); Basophils % (A) 0.2 %; Eosinophils # (A) 0.03 10*3/uL (0.04-0.35); Eosinophils % (A) 0.2 %; HCT 42.3 % (37.2-46.3); HGB 14.1 g/dL (12.0-15.0); Lymphocytes # (A) 2.01 10*3/uL (0.90-5.00); Lymphocytes % (A) 14.6 %; MCH 32.5 pg (27.0-32.0); MCHC 33.3 g/dL (32.0-37.0); MCV 97.5 fL (80.0-97.0); Mean Platelet Volume 10.3 fL (9.5-12.2); Monocytes # (A) 1.31 10*3/uL (0.20-1.00); Monocytes % (A) 9.5 %; Neutrophils # (A) 10.35 10*3/uL (1.80-7.70); Neutrophils % (A) 75.1 %; Platelet Count 379 10*3/uL (140-440); RBC 4.34 10*6/uL (4.10-5.20); RDW 13.5 % (11.5-14.5); WBC 13.79 10*3/uL (4.50-10.00)
[2025-01-30 08:19] LABS: ALT 20 U/L (4-34); AST 24 U/L (14-36); African American GFR (CKD) >90 (>60 ml/min/1.73 sqM); Alkaline Phosphatase 64 U/L (38-126); Anion Gap 7 mmol/L; Blood Urea Nitrogen 19 mg/dL (7-17); Calcium 9.8 mg/dL (8.4-10.2); Carbon Dioxide 31 mmol/L (22-30); Chloride 100 mmol/L (98-107); Glucose 113 mg/dL (74-99); Magnesium 1.9 mg/dL (1.6-2.3); Non-African American GFR(CKD) >90 (>60 ml/min/1.73 sqM); Phosphorus 4.2 mg/dL (2.5-4.5); Potassium 4.6 mmol/L (3.5-5.1); Sodium 138 mmol/L (137-145); Total Bilirubin 0.7 mg/dL (0.2-1.3); Total Protein 7.1 g/dL (6.3-8.2)
[2025-01-30 08:28] VITALS: BP 115/65; RESP 18; TEMP 97.6
[2025-01-30] MEDS: predniSONE 20 MG TAB PO SCH (08:31)
[2025-01-30 08:35] VITALS: PULSE 100
--- NOTE | 2025-01-30 11:44 | P.PN ---
Subjective Progress Note Date: 01/30/25 Principal diagnosis: COPD exacerbation. Patient is a 64-year-old female with past medical history significant for hypertension, hyperlipidemia, chronic obstructive pulmonary disease, and heavy tobacco use. Her primary care provider is Dr. Na Agrawal out of [place], [place]. She manages the patient's COPD with a combination of Wixela maintenance inhaler as well as as needed albuterol nebs/inhaler. Patient has a heavy tobacco smoking history of approximately 50 pack years. Recently, cut back to 3 cigarettes/day. Approximately 1 week ago started to have increased work of b reathing, increased cough with white phlegm, and chest tightness. She originally thought it was her seasonal allergies. Last night went to the kitchen to use her albuterol nebulizer, was in some respiratory distress, and had her called 911. On arrival, she was placed on BiPAP with settings 10/5 and FiO2 40%. Workup in the ED including a chest x-ray showing marked hyperinflation consistent with COPD. Borderline enlarged cardiac silhouette with possible mild pulmonary vascular congestion. NT proBNP was low at 118. D-dimer also low at 0.34. CBC remarkable for leukocytosis with WBC count of 15, hemoglobin 15.7, platelets 420. CMP: Sodium 139, K4.5, chloride 99, serum bicarb 28, BUN 25, creatinine 0.62, glucose 214. Lactic 0.9. LFTs not elevated. Troponin less than 0.012. EKG done on admission: Sinus tachycardia, rate 110 bpm, no acute ST segment elevations. Patient currently being evaluated in the emergency department room 20. She is off BiPAP which is on standby. Wi th above-mentioned settings. She is on 3 L/min nasal cannula. Not oxygen dependent at baseline. Her COPD continues to be active, she is wheezing. Denies any purulent sputum, hemoptysis, chest pain. Denies any fevers or chills. Denies any nausea, vomiting, diarrhea. Denies any recent travel or sick contacts. She does plan to go to [place] tomorrow. This might have to be postponed. Progress note dated January 30, 2025. 64-year-old female seen today in room 368. She was admitted with a diagnosis of COPD exacerbation. She is on room air. She is not receiving any IV fluids. Clinically, the patient is doing much better, and would like to be discharged. From our perspective, she could be discharged, with a prednisone burst and taper. She will resume her home medications. The only new medication will be prednisone with a taper. Labs today include a white count of 13.8, hemoglobin 1 4.1, hematocrit 42.3, and a platelet count of 379,000. Sodium 138, potassium 4.6, chlorides 100, CO2 31, BUN 19, creatinine 0.56. Procalcitonin level was less than 0.20. The patient was seen by cardiology, because of elevated troponin levels. Objective - Vital Signs Vital signs: Vital Signs Temp 97.6 F 01/30/25 08:00 Pulse 100 01/30/25 08:32 Resp 18 01/30/25 08:00 BP 115/65 01/30/25 08:00 Pulse Ox 96 01/30/25 08:21 FiO2 40 01/29/25 03:06 Intake & Output 01/29/25 01/30/25 01/30/25 18:59 06:59 18:59 Intake Total 600 1080 240 Output Total 700 Balance -100 1080 240 Weight 63.1 kg Intake: Intake, IV Titration 600 Amount Sodium Chloride 0.9% 1, 600 000 ml @ 75 mls/hr IV . [id number] [facility] Rx#:[id number] Oral 1080 240 Output: Urine 700 Other: Voiding Method Bedside Commode Toilet Toilet # Voids 1 - Exam No acute distress, oriented 3. Currently on room air. No respiratory distress. No audible wheezing. HEENT examination is grossly unremarkable. Mucous membranes are moist. No oral lesions. Neck supple. Full range of motion. No adenopathy thyromegaly or neck vein distention. Cardiovascular examination reveals regular rhythm rate. S1-S2 normal. No S3 or S4. No discernible murmur noted. Lungs reveal minimal expiratory wheezes. No rhonchi. No crackles. Breath sounds equal bilaterally. Breath sounds are improved. Abdomen soft bowel sounds are heard. No masses or tenderness. Extremities are intact. No cyanosis clubbing or edema. Skin is without rash or lesion. Neurologic examination is brief but nonfocal. - Labs CBC & Chem 7: 01/30/25 07:28 01/30/25 07:28 Labs: Abnormal Lab Results - Last 24 Hours (Table) 0501/29/25 01/30/25 Range/Units 11:44 15:00 00:24 WBC (4.50-10.00) 10*3/uL MCV (80.0-97.0) fL MCH (27.0-32.0) pg Immature Gran # (0.00-0.04) 10*3/uL Neutrophils # (1.80-7.70) 10*3/uL Monocytes # (0.20-1.00) 10*3/uL Eosinophils # (0.04-0.35) 10*3/uL Carbon Dioxide (22-30) mmol/L BUN (7-17) mg/dL Glucose (74-99) mg/dL Troponin I 0.299 H* 0.314 H* 0.266 H* (0.000-0.034) ng/mL 01/30/25 01/30/25 Range/Units 07:28 07:28 WBC 13.79 H (4.50-10.00) 10*3/uL MCV 97.5 H (80.0-97.0) fL MCH 32.5 H (27.0-32.0) pg Immature Gran # 0.06 H (0.00-0.04) 10*3/uL Neutrophils # 10.35 H (1.80-7.70) 10*3/uL Monocytes # 1.31 H (0.20-1.00) 10*3/uL Eosinophils # 0.03 L (0.04-0.35) 10*3/uL Carbon Dioxide 31 H (22-30) mmol/L BUN 19 H (7-17) mg/dL Glucose 113 H (74-99) mg/dL Troponin I (0.000-0.034) ng/mL Assessment and Plan Assessment: Acute COPD exacerbation. Acute hypoxemic respiratory failure, secondary to COPD. Acute leukocytosis. History of hypertension. History of hyperlipidemia. History of seasonal allergies. Current and ongoing tobacco use. Plan: Plan dated January 30, 2025. The patient is seen today in room 368. She is on room air. Saturations are in the mid 90s. She is not receiving any IV fluids. From the pulmonary standpoint, she is able to be discharged today. We will await what the primary service has. Her troponins were a bit elevated, and she apparently was seen by cardiology. Labs, x-rays, and all medications are reviewed. Prognosis is guarded. The patient is counseled about the importance of smoking cessation. We be happy to see her in the office, for follow-up. She would need a complete pulmonary function test. Dictation was produced using [employer] software. Please excuse any grammatical, word or spelling errors. Time with Patient: Less than 30
--- NOTE | 2025-01-30 12:59 | P.DS ---
Providers Date of admission: 01/29/25 01:17 Discharge Diagnosis: Acute hypoxic respiratory failure secondary to acute COPD exacerbation, not on home oxygen Elevated troponin, likely type II NSTEMI, likely 2/2 to above Leukocytosis, reactive Hyperglycemia Hyperlipidemia Hypertension Nicotine dependence Allergic rhinitis Hospital Course: Patient is a 64-year-old female with a history of hyperlipidemia, hypertension, COPD who presents for severe shortness of breath. Patient states for the last week she has had increased shortness of breath which she believes is from increased allergies. During this time she has increased cough with sputum production she attest to having a 50-year pack history and takes inhalers at home as needed. She does not wear oxygen at home at baseline. She denies fever, chills, chest pain, abdominal pain, nausea, vomiting, dysuria. ER FINDINGS: Labs significant for WBC 15, hemoglobin 15.7, BUN 25, glucose 214, troponin<0.012 => 0.133, proBNP 118 EKG independently interpreted showed sinus tachycardia heart rate of 110, QTc 390, no ST segment elevation or depression seen, no T-wave inversions seen. Chest x-ray done independently interpreted showed vascular congestion without focal consolidations, mildly enlarged cardiac silhouette. Patient was admitted for further evaluation for acute hypoxic respiratory failure secondary to acute COPD exacerbation with pulmonology and consulted. There were concern for initial reading of elevated troponin however the troponins were trended and remained flat. While admitted patient received appropriate treatment for her exacerbation. She was placed on oral steroids and finished her short course of oral antibiotic. Over the course of her stay her symptoms improved and she is hemodynamically stable. She was seen and cleared by pulmonology and will follow-up with them outpatient for complete pulmonary f unction testing. She will be discharged to finish her remaining course of oral steroids and will be given an inhaler as well. She can be discharged home today. With home self-care. Patient seen and examined at bedside. Vital signs reviewed and stable. Physical examination: Vital signs reviewed General: nontoxic, no distress, appears at stated age, on nasal cannula 2 L Derm: warm, dry, intact Head: atraumatic, normocephalic, symmetric Eyes: EOMI, anicteric sclera Mouth: no lip lesion, mucus membranes moist Cardiovascular: S1 S2 reg, no murmur, rubs, or gallops Lungs: CTA bilateral, no rhonchi, no rales, no accessory muscle use Abdominal: soft, non-tender to palpataion, no appreciable organomegaly Extremities: no gross muscle atrophy, no edema, no contractures Neuro: Alert, Oriented, CNII-XII grossly intact, gait normal Psych: well appearing, appropriate affect A total of greater than 30 minutes of time were spent preparing this complex discharge summary. Patient was discharged on January 30, 2025 at 10:17 AM. Esperanza Frye MD PGY-1 IM Dictation was produced using [employer] dictation software. please excuse any grammatical, word or spelling errors. I have seen and evaluated the patient today. Discussed with the resident and agree with the residents finding and plan as documented in the resident's note. Changes highlighted in blue font. Expected date of discharge: 01/30/25 Attending physician: Tre Zamora MD Consults: 01/29/25 01:15 Consult Physician Routine Consulting Provider: Walt Irene Consult Reason/Comments: copd Do you want consulting provider notified?: Yes Primary care physician: Physician Nonstaff Patient Condition at Discharge: Serious Plan - Discharge Summary Discharge Rx Participant: Yes New Discharge Prescriptions: New Aspirin 81 mg PO DAILY #90 tab predniSONE [Deltasone] 40 mg PO DAILY #6 tab Umeclidinium [place] [Incruse Ellipta] 1 puff INHALATION DAILY #30 each Continue Cetirizine HCl [Zyrtec] 10 mg PO DAILY lisinopriL [Zestril] 20 mg PO DIRECTED Fluticasone Propion/Salmeterol [Wixela 500-50 Inhub] 1 puff INHALATION RT-BID amLODIPine [Norvasc] 5 mg PO DIRECTED Albuterol Sulfate [Albuterol Sulfate Hfa] 1 puff PO DIRECTED PRN PRN Reason: Shortness Of Breath Atorvastatin [Lipitor] 80 mg PO DIRECTED Discharge Medication List Cetirizine HCl [Zyrtec] 10 mg PO DAILY 12/20/17 [History] Albuterol Sulfate [Albuterol Sulfate Hfa] 1 puff PO DIRECTED PRN 01/29/25 [History] Atorvastatin [Lipitor] 80 mg PO DIRECTED 01/29/25 [History] Fluticasone Propion/Salmeterol [Wixela 500-50 Inhub] 1 puff INHALATION RT-BID 01/29/25 [History] amLODIPine [Norvasc] 5 mg PO DIRECTED 01/29/25 [History] lisinopriL [Zestril] 20 mg PO DIRECTED 01/29/25 [History] Aspirin 81 mg PO DAILY #90 tab 01/30/25 [Rx] Umeclidinium [place] [Incruse Ellipta] 1 puff INHALATION DAILY #30 each 01/30/25 [Rx] predniSONE [Deltasone] 40 mg PO DAILY #6 tab 01/30/25 [Rx] Follow up Appointment(s)/Referral(s): Walt Irene DO [Doctor of Osteopathic Medicine] - 1 Week None,Stated [REFERRING] - 1-2 days Patient Instructions/Handouts: COPD (Chronic Obstructive Pulmonary Disease) (DC) Activity/Diet/Wound Care/Special Instructions: Please follow up with PCP and pulmonology. Discharge Disposition: HOME SELF-CARE
== END 2025-01-30 11:53 | disposition home or self-care (01) | DRG 190 ==
LOC: EC 23:31 → 3SCARD 01-29 01:17
PROVIDERS: ADMIT Internal Medicine; ATTEND Internal Medicine
PROC: 5A09357 Assistance with Respiratory Ventilation, Less than 24 Consecutive Hours, Continuous Positive Airway Pressure (ICD-10-PCS; principal; 2025-01-29)
DX: J44.1 Chronic obstructive pulmonary disease with (acute) exacerbation (principal); I21.A1 Myocardial infarction type 2; J96.01 Acute respiratory failure with hypoxia; I11.0 Hypertensive heart disease with heart failure; I08.1 Rheumatic disorders of both mitral and tricuspid valves; I50.9 Heart failure, unspecified; Z11.52 Encounter for screening for COVID-19; Z79.51 Long term (current) use of inhaled steroids; Z79.82 Long term (current) use of aspirin; Z79.899 Other long term (current) drug therapy; Z82.49 Family history of ischemic heart disease and other diseases of the circulatory system; J30.2 Other seasonal allergic rhinitis; F41.9 Anxiety disorder, unspecified; J30.9 Allergic rhinitis, unspecified; R00.0 Tachycardia, unspecified; R73.9 Hyperglycemia, unspecified; M19.90 Unspecified osteoarthritis, unspecified site; F17.210 Nicotine dependence, cigarettes, uncomplicated; E78.5 Hyperlipidemia, unspecified; D72.829 Elevated white blood cell count, unspecified; Z71.6 Tobacco abuse counseling; Z88.0 Allergy status to penicillin; Z98.51 Tubal ligation status
CPT/HCPCS: 36415; 71045; 80048; 80053; 83036; 83605; 83735; 83880; 84100; 84145; 84484; 85025; 85379; 85610; 85730; 87636; 93005; 93306; 94640; 94660; 94760; 96361; 96372; 96374; 96375; 99291